=== PATIENT | male | born 1975 | race Caucasian/White ===

== ENCOUNTER → 2016-08-28 | Outpatient (CLI) | payer MEDICARE, MEDICAID ==
[2016-08-28 13:19] VITALS: BP 128/83
== END ==
LOC: MHUC 11:58
PROVIDERS: ATTEND Physician Assistant
DX: K52.9 Noninfective gastroenteritis and colitis, unspecified (principal)
CPT/HCPCS: 99213

== ENCOUNTER 2016-09-14 12:38 | Outpatient (RCR) | payer MEDICARE, MEDICAID | END 2016-12-13 | disposition home or self-care (01) | LOC: DT 12:38 | PROVIDERS: ATTEND Family Medicine | DX: E11.65 Type 2 diabetes mellitus with hyperglycemia (principal); E66.8 Other obesity; Z68.30 Body mass index [BMI] 30.0-30.9, adult; Z71.3 Dietary counseling and surveillance | CPT/HCPCS: 97802 ==